=== PATIENT | male | born 1945 | race Caucasian/White ===

== ENCOUNTER → 2017-09-07 | Outpatient (CLI) | payer MEDICARE | END | disposition home or self-care (01) | LOC: RADNMMAIN 10:30 | PROVIDERS: ATTEND Nurse Practitioner Family | DX: Z53.9 Procedure and treatment not carried out, unspecified reason (principal) ==

== ENCOUNTER → 2017-09-27 | Outpatient (CLI) | payer MEDICARE ==
--- NOTE | 2017-09-27 12:35 | ECHOF ---
Referral Reason:Z01.818 pre surgical testing MEASUREMENTS -------- HEIGHT: 188.0 cm WEIGHT: 77.1 kg BP: 190/122 RVIDd: 4.0 cm (< 3.3) IVSd: 1.5 cm (0.6 - 1.1) LVIDd: 4.6 cm (3.9 - 5.3) LVPWd: 1.5 cm (0.6 - 1.1) IVSs: 2.2 cm LVIDs: 2.0 cm LVPWs: 2.0 cm LA Diam: 3.7 cm (2.7 - 3.8) LAESV Index (A-L): 46.21 ml/m Ao Diam: 3.8 cm (2.0 - 3.7) AV Cusp: 2.6 cm (1.5 - 2.6) EPSS: 0.3 cm MV E Aydin: 0.88 m/s MV DecT: 166 ms MV A Aydin: 1.10 m/s MV E/A Ratio: 0.81 RAP: 5.00 mmHg RVSP: 37.09 mmHg MV EF SLOPE: 77.33 mm/s (70 - 150) MV EXCURSION: 1.99 cm (> 18.000) FINDINGS -------- Sinus rhythm. This was a technically excellent study. The left ventricular size is normal. There is moderate concentric left ventricular hypertrophy. O verall left ventricular systolic function is normal with, an EF between 55 - 60 %. The right ventricle is moderately enlarged. LA is severely dilated >40 ml/m2 The right atrium is normal in size. Aortic valve is trileaflet and is mildly thickened. Trace to mild aortic regurgitation. The mitral valve leaflets are mildly thickened. Mild mitral regurgitation is present. Mild tricuspid regurgitation present. There is mild pulmonary hypertension. The right ventricular systolic pressure, as measured by Doppler, is 37.09mmHg. There is no pulmonic regurgitation present. The aortic root is dilated measuring 3.8cm. Normal inferior vena cava with normal inspiratory collapse consistent with estimated right atrial pre ssure of 5 mmHg. There is no pericardial effusion. CONCLUSIONS -------- 1. Sinus rhythm. 2. This was a technically excellent study. 3. The left ventricular size is normal. 4. There is moderate concentric left ventricular hypertrophy. 5. Overall left ventricular systolic function is normal with, an EF between 55 - 60 %. 6. The right ventricle is moderately enlarged. 7. LA is severely dilated >40 ml/m2 8. The right atrium is normal in size. 9. Aortic valve is trileaflet and is mildly thickened. 10. Trace to mild aortic regurgitation. 11. The mitral valve leaflets are mildly thickened. 12. Mild mitral regurgitation is present. 13. Mild tricuspid regurgitation present. 14. There is mild pulmonary hypertension. 15. The right ventricular systolic pressure, as measured by Doppler, is 37.09mmHg. 16. There is no pulmonic regurgitation present. 17. The aortic root is dilated measuring 3.8cm. 18. Normal inferior vena cava with normal inspiratory collapse consistent with estimated right atrial pressure of 5 mmHg. 19. There is no pericardial effusion. PAINTER DECORATOR: LELA Bridges
== END | disposition home or self-care (01) ==
LOC: RADECHMAIN 11:04
PROVIDERS: ATTEND Family Medicine
DX: Z01.818 Encounter for other preprocedural examination (principal); I27.20 Pulmonary hypertension, unspecified; I08.1 Rheumatic disorders of both mitral and tricuspid valves
CPT/HCPCS: 93306

== ENCOUNTER 2019-08-31 03:00 | Observation (INO) | payer MEDICARE ==
[2019-08-31 03:26] LABS: Basophils % (A) 1 %; Eosinophils # (A) 0.1 k/uL (0-0.7); Eosinophils % (A) 1 %; HCT 23.4 % (39.0-53.0); HGB 7.8 gm/dL (13.0-17.5); Lymphocytes # (A) 0.5 k/uL (1.0-4.8); Lymphocytes % (A) 9 %; MCH 32.3 pg (25.0-35.0); MCHC 33.4 g/dL (31.0-37.0); MCV 96.5 fL (80.0-100.0); Mean Platelet Volume 8.5; Monocytes # (A) 0.3 k/uL (0-1.0); Monocytes % (A) 5 %; Neutrophils # (A) 4.5 k/uL (1.3-7.7); Neutrophils % (A) 82 %; Platelet Count 171 k/uL (150-450); RBC 2.43 m/uL (4.30-5.90); RDW 14.2 % (11.5-15.5); WBC 5.5 k/uL (3.8-10.6)
[2019-08-31 03:35] LABS: African American GFR (CKD) >90 (>60 ml/min/1.73 sqM); Anion Gap 5 mmol/L; Blood Urea Nitrogen 40 mg/dL (9-20); Calcium 8.3 mg/dL (8.4-10.2); Carbon Dioxide 23 mmol/L (22-30); Chloride 105 mmol/L (98-107); Glucose 122 mg/dL (74-99); INR 1.1 (<1.2); Non-African American GFR(CKD) 78 (>60 ml/min/1.73 sqM); Partial Thromboplastin Time 25.3 sec (22.0-30.0); Potassium 4.2 mmol/L (3.5-5.1); Prothrombin Time 11.1 sec (9.0-12.0); Sodium 133 mmol/L (137-145)
[2019-08-31] MEDS ORDERED: MORPHINE SULFATE 4 MG/ML SYRINGE IV PRN (04:28)
[2019-08-31] MEDS ORDERED: NALOXONE 0.4 MG/ML 1 ML VIAL IV PRN (04:28)
[2019-08-31] MEDS ORDERED: ONDANSETRON 4 MG/2 ML VIAL IVP PRN (04:28)
[2019-08-31] MEDS ORDERED: HYDROcodone/APAP 5-325MG 1 EACH TAB PO PRN (04:31)
--- NOTE | 2019-08-31 04:36 | ED ---
ENT HPI - General Chief complaint: ENT Stated complaint: Nose Bleed Time Seen by Provider: 08/31/19 03:03 Source: patient, EMS Mode of arrival: EMS Limitations: no limitations - History of Present Illness Initial comments: This patient is a 73-year-old man presenting as a transfer from [facility]. He is sent here to have ENT consultation due to epistaxis. The patient states that he takes eliquis at baseline, his last dose was . Patient states that Monday morning approximately 4:30 AM he had the onset of bleeding from the right naris. The patient states that he was not able to stop this at home he therefore went to the emergency department and [facility]. His nose was packed with a Murocel packing, and he went home, but had recurrence of bleeding. The patient then went back to the hospital tonight, he had placement of bi lateral Rhino Rocket packings. He was given dose of TXa, and he reportedly still was having some bleeding and therefore transferred here. The patient states that things seemed to have slowed during the transfer and he is feeling better now. He is denying symptoms associated with the anemia is found at [place]. He denies chest pain, dyspnea, lightheadedness, palpitations or syncope. MD complaint: epistaxis Onset/Timin -: hour(s) Location: nose Severity: moderate Improves with: other (Packing) Worsens with: none Context-Epistaxis: other (L Aquinas) - Related Data Previous Rx's Medication Instructions Recorded Lisinopril [Zestril] 5 mg PO DAILY #60 tab 03/01/15 Hydrocodone/Acetaminophen [[place] 1 tab PO Q6HR PRN #20 tab 04/28/16 5-325] Allergies Allergy/AdvReac Type Severity Reaction Status Date / Time No Known Allergies Allergy Verified 04/28/16 10:38 Review of Systems ROS Statement: Those systems with pertinent positive or pertinent negative responses have been documented in the HPI. ROS Other: All systems not noted in ROS Statement are negative. Constitutional: Denies: fever, chills, weakness Eyes: Denies: vision change ENT: Reports: epistaxis Respiratory: Denies: cough, dyspnea Cardiovascular: Denies: chest pain, palpitations, syncope Gastrointestinal: Reports: vomiting. Denies: abdominal pain Skin: Denies: rash Neurological: Denies: headache, weakness, numbness, paresthesias Hematological/Lymphatic: Reports: as per HPI Past Medical History Past Medical History: CVA/TIA, Hypertension Additional Past Medical History / Comment(s): cva june 2019 effected peripheral vision on right side. History of Any Multi-Drug Resistant Organisms: None Reported Past Surgical History: Orthopedic Surgery Additional Past Surgical History / Comment(s): left shoulder Past Psychological History: No Psychological Hx Reported Smoking Status: Current every day smoker Past Alcohol Use History: Occasional Past Drug Use History: None Reported General Exam Limitations: no limitations General appearance: alert, in no apparent distress Head exam: Present: atraumatic, normocephalic Eye exam: Present: normal appearance, PERRL. Absent: scleral icterus, conjunctival injection ENT exam: Present: other (Patient has bilateral nasal packings. There is currently no anterior bleeding. The oropharynx does appear to have some dried blood but no active bleeding.) Neck exam: Present: full ROM Respiratory exam: Present: normal lung sounds bilaterally. Absent: respiratory distress, wheezes, rales, rhonchi, stridor Cardiovascular Exam: Present: regular rate, normal rhythm, systolic murmur. Absent: diastolic murmur, rubs, gallop GI/Abdominal exam: Present: soft. Absent: tenderness Neurological exam: Present: alert Skin exam: Present: warm, dry, intact, normal color. Absent: rash Course Vital Signs 08/31/19 08/31/19 03:01 04:04 Temperature 98 F Pulse Rate 80 60 Respiratory 18 18 Rate Blood Pressure 123/79 112/77 O2 Sat by Pulse 96 95 Oximetry Medical Decision Making - Lab Data Result diagrams: 08/31/19 03:14 08/31/19 03:14 Lab Results 08/31/19 08/31/19 08/31/19 Range/Units 03:14 03:14 03:14 WBC 5.5 (3.8-10.6) k/uL RBC 2.43 L (4.30-5.90) m/uL Hgb 7.8 L (13.0-17.5) gm/dL Hct 23.4 L (39.0-53.0) % MCV 96.5 (80.0-100.0) fL MCH 32.3 (25.0-35.0) pg MCHC 33.4 (31.0-37.0) g/dL RDW 14.2 (11.5-15.5) % Plt Count 171 (150-450) k/uL Neutrophils % 82 % Lymphocytes % 9 % Monocytes % 5 % Eosinophils % 1 % Basophils % 1 % Neutrophils # 4.5 (1.3-7.7) k/uL Lymphocytes # 0.5 L (1.0-4.8) k/uL Monocytes # 0.3 (0-1.0) k/uL Eosinophils # 0.1 (0-0.7) k/uL Basophils # 0.0 (0-0.2) k/uL PT 11.1 (9.0-12.0) sec INR 1.1 (<1.2) APTT 25.3 (22.0-30.0) sec Sodium (137-145) mmol/L Potassium (3.5-5.1) mmol/L Chloride (98-107) mmol/L Carbon Dioxide (22-30) mmol/L Anion Gap mmol/L BUN (9-20) mg/dL Creatinine (0.66-1.25) mg/dL Est GFR (CKD-EPI)AfAm (>60 ml/min/1.73 sqM) Est GFR (CKD-EPI)NonAf (>60 ml/min/1.73 sqM) Glucose (74-99) mg/dL Calcium (8.4-10.2) mg/dL Blood Type A Positive Blood Type Recheck No Previous Record Bld Type Recheck Status CABO Indicated Antibody Screen NEGATIVE Spec Expiration Date 09/03/2019 - 231308/31/19 Range/Units 03:14 WBC (3.8-10.6) k/uL RBC (4.30-5.90) m/uL Hgb (13.0-17.5) gm/dL Hct (39.0-53.0) % MCV (80.0-100.0) fL MCH (25.0-35.0) pg MCHC (31.0-37.0) g/dL RDW (11.5-15.5) % Plt Count (150-450) k/uL Neutrophils % % Lymphocytes % % Monocytes % % Eosinophils % % Basophils % % Neutrophils # (1.3-7.7) k/uL Lymphocytes # (1.0-4.8) k/uL Monocytes # (0-1.0) k/uL Eosinophils # (0-0.7) k/uL Basophils # (0-0.2) k/uL PT (9.0-12.0) sec INR (<1.2) APTT (22.0-30.0) sec Sodium 133 L (137-145) mmol/L Potassium 4.2 (3.5-5.1) mmol/L Chloride 105 (98-107) mmol/L Carbon Dioxide 23 (22-30) mmol/L Anion Gap 5 mmol/L BUN 40 H (9-20) mg/dL Creatinine 0.95 (0.66-1.25) mg/dL Est GFR (CKD-EPI)AfAm >90 (>60 ml/min/1.73 sqM) Est GFR (CKD-EPI)NonAf 78 (>60 ml/min/1.73 sqM) Glucose 122 H (74-99) mg/dL Calcium 8.3 L (8.4-10.2) mg/dL Blood Type Blood Type Recheck Bld Type Recheck Status Antibody Screen Spec Expiration Date Disposition Clinical Impression: Epistaxis, Anemia Disposition: ADMITTED IP TO THIS HOSP Condition: Fair Referrals: Magan Samayoa MD [Primary Care Provider] - 1-2 days
[2019-08-31] MEDS: SODIUM CHLORIDE 0.9% 1,000 ML IV SCH ×2 (04:44→22:03)
[2019-08-31] MEDS: LISINOPRIL 5 MG TAB PO SCH (12:36)
[2019-08-31] MEDS: METOPROLOL TARTRATE 12.5 MG TAB PO SCH ×2 (12:36→22:04)
--- NOTE | 2019-08-31 19:24 | P.HPIM ---
History of Present Illness H&P Date: 08/31/19 Chief Complaint: Epistaxis History of presenting complaint: This is a pleasant 73-year-old patient of Dr. Fahad Samayoa. Chronic stable medical conditions include hypertension, COPD, some loss of peripheral vision on the right side from prior stroke. Patient is on eliquis. Patient's simvastatin having significant nose bleed-that started on Monday morning. From the right nose. He went to the ER after. Hospital. A packing was then he was sent home. Necrosis of bleeding occurred. Subsequently in the ER bilateral Rhino rocket packs were done. Given a dose of 20 x-ray still of some bleeding was transferred here. No further bleeding since arriving in the hospital. Patient was sent down here for ENT consultation. Patient does feel a bit tired rundown. No further bleeding. Review of systems: GEN.: Tired and dizzy EYES: None HEENT: As above NECK: None RESPIRATORY: None CARDIOVASCULAR: None GASTROINTESTINAL: None GENITOURINARY: None MUSCULOSKELETAL: Joint pains LYMPHATICS: None HEMATOLOGICAL: None PSYCHIATRY: None NEUROLOGICAL: None Past medical history to include: Hypertension, COPD, loss of vision peripheral in the right side Social history: Smokes half a pack a day for many years. Alcohol occasionally. Family history: Reviewed, noncontributory to presentation Physical examination: VITAL SIGNS: 98, 80, 18, 120 279, 96% on room air GENERAL: BMI 20.4, sitting up, awake. EYES: Pupils equal. Conjunctiva normal. HEENT: Nasal packing in both the nostrils with strings. NECK: JVD not raised; masses not palpable. HEART: First and second heart sounds are normal; no edema. LUNGS:[ Respiratory rate normal; decreased breath sounds. ABDOMEN: Soft, nontender, liver spleen not palpable, no masses palpable. PSYCH: Alert and oriented x3; mood and affect normal. NEUROLOGICAL: Cranial nerves grossly intact; no facial asymmetry, power and sensation grossly intact. LYMPHATICS: No lymph nodes palpable in the axilla and neck INVESTIGATIONS, reviewed in the clinical context: White count 5.5 hemoglobin 7.8 potassium 4.2 creatinine 0.95 Assessment: -Acute severe epistaxis recurrent, patient has a distal packing. -Acute severe blood loss anemia from epistaxis, symptomatic -COPD in a current smoker -Chronic nicotine dependence patient cigarette smoker -Essential hypertension - Plan: ENT Dr. Meadows was consulted. Cut the packing in place. Discussed with the patient. Eliquis will be held off to the packing comes out. In about 4-5 days. 24 hours following that patient may resume eliquis. Patient is completing the meantime with any kind of anticoagulation. Patient advised not to blow his nose or pick on his nose. Repeat hemoglobin in the morning. Past Medical History Past Medical History: CVA/TIA, Hypertension Additional Past Medical History / Comment(s): cva june 2019 effected peripheral vision on right side. History of Any Multi-Drug Resistant Organisms: None Reported Past Surgical History: Orthopedic Surgery Additional Past Surgical History / Comment(s): left shoulder Past Anesthesia/Blood Transfusion Reactions: No Reported Reaction Past Psychological History: No Psychological Hx Reported Smoking Status: Current every day smoker Past Alcohol Use History: Occasional Past Drug Use History: None Reported - Past Family History Father Family Medical History: No Reported History Medications and Allergies Home Medications Medication Instructions Recorded Confirmed Type Albuterol Inhaler [Ventolin Hfa 1 - 2 puff INHALATION RT-Q6H PRN 08/31/19 08/31/19 History Inhaler] Apixaban [Eliquis] 5 mg PO BID 08/31/19 08/31/19 History Aspirin EC [Ecotrin Low Dose] 81 mg PO DAILY 08/31/19 08/31/19 History Atorvastatin [Lipitor] 40 mg PO HS 08/31/19 08/31/19 History Metoprolol Tartrate 12.5 mg PO DAILY 08/31/19 08/31/19 History Multivitamins, Thera [Multivitamin 1 tab PO DAILY 08/31/19 08/31/19 History (formulary)] amLODIPine [Norvasc] 5 mg PO DAILY 08/31/19 08/31/19 History Allergies Allergy/AdvReac Type Severity Reaction Status Date / Time No Known Allergies Allergy Verified 08/31/19 10:31 Physical Exam Vitals: Vital Signs Temp Pulse Pulse Resp BP BP Pulse Ox 08/31/19 05:30 97.9 F 82 16 110/67 95 08/31/19 04:47 73 18 117/80 97 08/31/19 04:04 60 18 112/77 95 08/31/19 03:01 98 F 80 18 123/79 96 Intake and Output 08/30/19 08/31/19 08/31/19 22:59 06:59 14:59 Other: Weight 72.121 kg Results CBC & Chem 7: 08/31/19 03:14 08/31/19 03:14 Labs: Abnormal Lab Results - Last 24 Hours (Table) 08/31/19 08/31/19 Range/Units 03:14 03:14 RBC 2.43 L (4.30-5.90) m/uL Hgb 7.8 L (13.0-17.5) gm/dL Hct 23.4 L (39.0-53.0) % Lymphocytes # 0.5 L (1.0-4.8) k/uL Sodium 133 L (137-145) mmol/L BUN 40 H (9-20) mg/dL Glucose 122 H (74-99) mg/dL Calcium 8.3 L (8.4-10.2) mg/dL Thrombosis Risk Factor Assmnt - Choose All That Apply Any of the Below Risk Factors Present?: No Other Risk Factors: Yes Each Risk Factor Represents 3 Points: Age 75 years or older Other congenital or acquired thrombophilia - If yes, enter type in comment: No Thrombosis Risk Factor Assessment Total Risk Factor Score: 3 Thrombosis Risk Factor Assessment Level: Moderate Risk
[2019-08-31] MEDS: ACETAMINOPHEN TAB 325 MG TAB PO PRN (20:05)
[2019-08-31] MEDS ORDERED: ATORVASTATIN 40 MG TAB PO SCH (21:00)
--- NOTE | 2019-09-01 03:20 | CONS ---
CONSULTATION DATE OF CONSULTATION: 08/31/2019 REASON FOR THE CONSULTATION: Bilateral posterior epistaxis. HISTORY OF PRESENT ILLNESS: This patient is a very pleasant, 73-year-old male who was admitted via the [facility] Emergency Room to [facility] for definitive treatment of a bilateral posterior epistaxis. The patient states that on 08/30/2019 in the early a.m., he developed bleeding from the right, and subsequently the left, nostril. He tried applying pressure and putting tissue in his nose. However, the bleeding did not stop and, therefore, he proceeded to [facility]. He was seen by the emergency room physician. An anterior-posterior balloon packing was inserted and the patient was subsequently discharged. The patient states that he went home and later on that evening he started bleeding once again. He returned to the [facility] Center. The emergency room physician removed the packing because it was bleeding around the packing/nasal balloons. He reinserted a new nasal balloon and apparently the bleeding had stopped. To the best of my knowledge, the hospital has one and possibly three ENT specialists on staff. One of the ENT specialists lives in [facility] and the other two that I believe are on staff live in [place], [place]. However, for some reason none of the ENT physicians on staff at the [facility] were available for automation developer for the [facility] Emergency Room. Therefore, the emergency room sent a call to [facility] ER for permission to transfer the patient to receive ENT treatment. The [facility] accepted the transfer and the patient was seen by the emergency room physician and at that time it was noted that the patient was bleeding out of the opposite nostril and, therefore, that side also had a nasal balloon packing inserted. Therefore, the patient had both naris packed with Rhino Rocket nasal balloons. He was subsequently admitted to the hospital for treatment because his hemoglobin was approximately 8 and there was concern about his getting dizzy. No transfusion was performed, however. The patient states that he has had minor nosebleeds in the past. He apparently is on Eliquis and baby aspirin for blood thinners. He has history of having a previous stroke and that is the reason for it. PAST MEDICAL HISTORY: Past medical history reveals he has NO ALLERGIES TO MEDICATIONS. He smokes anywhere from one-half to one pack plus of cigarettes per day. He has been advised to stop for obvious health reasons including the fact that he has had a previous stroke. Although the hospital in [place] did not stop the patient's blood thinners when they sent him home, fortunately, the [facility] did stop the patient's Eliquis and the baby aspirin upon admitting him to the hospital. THE PATIENT HAS NO ALLERGIES TO MEDICATIONS. His current home medications include Norvasc, one baby aspirin daily, metoprolol, Lipitor, Eliquis, and Ventolin. REVIEW OF SYSTEMS: CARDIOVASCULAR: Positive for hypertension and ASHD. RESPIRATORY SYSTEM: Positive for COPD/emphysema. GASTROINTESTINAL SYSTEM: Negative. METABOLIC/ENDOCRINE SYSTEM: Positive for hypercholesterolemia. The remainder of the review of systems is essentially unremarkable. PHYSICAL EXAMINATION: This patient is a pleasant, 73-year-old male who is alert, cooperative, and well oriented to time and place. HEENT EXAMINATION: The patient is normocephalic. Tympanic membranes are normal. Middle ear spaces are free of any fluid or infections. Pupils equal, round, and reactive to light and accommodation. Extraocular movements are within normal limits. Conjunctivae are clear. Sclerae are clear. Intranasal examination is not possible because the patient has bilateral nasal balloons present; however, there is no active bleeding around the balloons noted at this time. Examination of the oropharynx with attention to the posterior pharynx does not reveal any evidence of any clots or any bleeding down the posterior pharyngeal wall. Palpation of the neck: Cranial nerves II through XII and the remainder of the head and neck exam are within normal limits. CHEST/CARDIOVASCULAR: Both lung benson are clear, although lung sounds are somewhat distant, especially at the bases bilaterally. The patient is in regular sinus rhythm. S1 and S2 are present without evidence of any murmurs, S3, or S4. ABDOMEN: There is no evidence of any masses, megaly, or tenderness. The abdomen is soft. The remainder of physical exam is unremarkable. IMPRESSION: 1. Bilateral anterior posterior epistaxis. 2. Hypertension. 3. Hypercholesterolemia. 4. Atherosclerotic heart disease. 5. Chronic obstructive pulmonary disease/emphysema. 6. Osteoarthritis. PLAN: The patient has not had any dizzy spells and appears to be stabilized at this time. He has not had any further bleeding since his admission. I discussed with the patient the fact that, because he was stable, it would be okay for him to go home today. However, I admonished the patient that he absolutely must not use any aspirin or Eliquis until he is seen by me in my office in approximately 5 days. His will call on Monday to make an appointment to be seen on Monday of next week. At that time, I will remove the nasal balloons. I advised the patient that the balloons have to stay in place for that length of time in order to allow the injured blood vessels to thrombose off and not bleed any further. I also advised the patient that it is not unusual to have minor bleeding intermittently while the balloons are in. This usually is related to the fact that there may be some residual Eliquis and aspirin in his sytem and also the fact that in these patients whenever the blood pressure goes up there tends to be bleeding. Therefore, I have advised him that he needs to be essentially at rest at home but not strictly bed rest. He should not engage in any type of activity such as yard work, furniture moving, or any type of activity that will cause him to strain. The more rest he gets, the less chances of him having any further bleeding. For his osteoarthritis, he may take Tylenol but he is to avoid ibuprofen and also is not to take any aspirin or Eliquis while at home. Furthermore, I have advised the patient that I will be placing him on Keflex 500 mg p.o. b.i.d. for 10 days to prevent any type of sinus infection from any blood that may have accumulated in the maxillary sinuses during his bleeding episodes. He will also be given approximately 20 Tylenol No. 3 tablets to be taken q.4 hours p.r.n. for pain. He may also take Extra Strength Tylenol for pain but not ibuprofen. I recommended to the patient that he absolutely, positively not do any smoking at least until he sees me. I advised him that he should contact his primary care physician, Dr. Samayoa, and advised him that I have requested that he be off the Eliquis and the aspirin until further notice. I spoke with the patient's on the patient's cellphone and relayed all of the above information to her as well. She states that she will accompany him to the office visit. I advised the patient that at the time of the office visit both of the nasal balloons will be removed and he will be started on a regimen to prevent any further bleeding until the area has healed. All of the patient's questions and all of the patient's 's questions were answered while I was in the room. I spent approximately 35 to 40 minutes with this patient going over instructions and I will leave two prescriptions, one prescription for Keflex 500 mg b.i.d., #20; and Tylenol No. 3 tablets, one p.o. q.4 hours p.r.n. for pain, #20, at the nursing station. In addition to this, I gave the patient two of my business cards with my address and phone number present so that he may call and schedule a visit on Monday. I want to take this opportunity to thank you for allowing me to assist in the care of your patient. If I can be of any further assistance, please feel free to call my office. I also advised the patient that because there is at least one ENT physician located in the town of [place] and because I believe that there are two other ENT physicians that come from [place] to provide care at [facility] that it is more than acceptable for him to see either one of those physicians if he would like to see one of those physicians. However, he emphasized that he would prefer to follow with me at my office and, therefore, I look forward to seeing him next Monday. SUZANNE / AIDE: [phone] /
[2019-09-01 06:41] LABS: Basophils % (A) 0 %; Eosinophils % (A) 0 %; HCT 20.7 % (39.0-53.0); Lymphocytes # (A) 0.4 k/uL (1.0-4.8); Lymphocytes % (A) 6 %; MCH 32.8 pg (25.0-35.0); MCHC 33.4 g/dL (31.0-37.0); MCV 98.3 fL (80.0-100.0); Monocytes # (A) 0.6 k/uL (0-1.0); Monocytes % (A) 8 %; Neutrophils # (A) 5.8 k/uL (1.3-7.7); Neutrophils % (A) 83 %; Platelet Count 142 k/uL (150-450); RDW 14.2 % (11.5-15.5)
[2019-09-01 06:54] LABS: HGB 6.9 gm/dL (13.0-17.5)
[2019-09-01] MEDS: LISINOPRIL 5 MG TAB PO SCH (08:23)
[2019-09-01] MEDS: SODIUM CHLORIDE 0.9% 1,000 ML IV SCH (08:23)
[2019-09-01] MEDS: METOPROLOL TARTRATE 12.5 MG TAB PO SCH (08:23)
[2019-09-01] MEDS: ACETAMINOPHEN TAB 325 MG TAB PO PRN (08:28)
[2019-09-01 14:36] VITALS: BP 156/75; PULSE 76; RESP 14; TEMP 97.9
[2019-09-01 17:36] LABS: Basophils % (A) 0 %; Eosinophils % (A) 1 %; HCT 22.7 % (39.0-53.0); HGB 7.6 gm/dL (13.0-17.5); Lymphocytes # (A) 0.6 k/uL (1.0-4.8); Lymphocytes % (A) 7 %; MCH 32.1 pg (25.0-35.0); MCHC 33.6 g/dL (31.0-37.0); MCV 95.4 fL (80.0-100.0); Mean Platelet Volume 9.5; Monocytes # (A) 0.6 k/uL (0-1.0); Monocytes % (A) 7 %; Neutrophils # (A) 6.5 k/uL (1.3-7.7); Neutrophils % (A) 83 %; Platelet Count 153 k/uL (150-450); RBC 2.37 m/uL (4.30-5.90); RDW 14.6 % (11.5-15.5); WBC 7.9 k/uL (3.8-10.6)
--- NOTE | 2019-09-01 20:37 | P.DS ---
Providers Date of admission: 08/31/19 04:41 Expected date of discharge: 09/01/19 Attending physician: Dominic Cruz Consults: 08/31/19 04:29 Consult Physician Routine Consulting Provider: Jos Meadows Consult Reason/Comments: epistaxis Do you want consulting provider notified?: Yes Primary care physician: Magan Samayoa [facility] Course: Chief Complaint: Epistaxis History of presenting complaint: This is a pleasant 73-year-old patient of Dr. Fahad Samayoa. Chronic stable medical conditions include hypertension, COPD, some loss of peripheral vision on the right side from prior stroke. Patient is on eliquis. Patient's simvastatin having significant nose bleed-that started on Monday morning. From the right nose. He went to the ER after. Hospital. A packing was then he was sent home. Necrosis of bleeding occurred. Subsequently in the ER bilateral Rhino rocket packs were done. Given a dose of 20 x-ray still of some bleeding was transferred here. No further bleeding since arriving in the hospital. Patient was sent down here for ENT consultation. Patient does feel a bit tired rundown. No further bleeding. Patient is seen by Dr. Jso Meadows from ENT. Today-hemoglobin dropped down to 6.9. Unit of blood was given. Patient advised to start his aspirin 24 hours after the nasal packing was removed next Monday. He'll then discuss with his family doctor about restarting eliquis. Patient rather reluctant to go back on the same. Care discussed in detail. Discussion and discharge planning more than 35 minutes Consultation: Dr. Jos Meadows Physical examination: VITAL SIGNS: 97.9, 76, 14, 127/79, 97% GENERAL: BMI 20.4, sitting up, awake. EYES: Pupils equal. Conjunctiva normal. HEENT: Nasal packing in both the nostrils with strings. NECK: JVD not raised; masses not palpable. HEART: First and second heart sounds are normal; no edema. LUNGS:[ Respiratory rate normal; decreased breath sounds. ABDOMEN: Soft, nontender, liver spleen not palpable, no masses palpable. PSYCH: Alert and oriented x3; mood and affect normal. INVESTIGATIONS, reviewed in the clinical context: Hemoglobin 6.9 this morning. After one unit of transfusion 7.6 Assessment: -Acute severe epistaxis recurrent, patient has a distal packing. -Acute severe blood loss anemia from epistaxis, symptomatic -COPD in a current smoker -Chronic nicotine dependence patient cigarette smoker -Essential hypertension - Disposition: Home Patient Condition at Discharge: Stable Plan - Discharge Summary Discharge Rx Participant: No New Discharge Prescriptions: New Lisinopril [Zestril] 5 mg PO DAILY #30 tab Cephalexin [Keflex] 500 mg PO Q6HR 3 Days #20 cap Acetaminophen with Codeine [Tylenol w/codeine #3] 1 tab PO Q4H PRN 3 Days #20 tab PRN Reason: Pain Continue Atorvastatin [Lipitor] 40 mg PO HS Multivitamins, Thera [Multivitamin (formulary)] 1 tab PO DAILY Albuterol Inhaler [Ventolin Hfa Inhaler] 1 - 2 puff INHALATION RT-Q6H PRN PRN Reason: Shortness Of Breath Changed Metoprolol Tartrate 12.5 mg PO BID #60 tab Discontinued amLODIPine [Norvasc] 5 mg PO DAILY No Action Apixaban [Eliquis] 5 mg PO BID Aspirin EC [Ecotrin Low Dose] 81 mg PO DAILY Discharge Medication List Albuterol Inhaler [Ventolin Hfa Inhaler] 1 - 2 puff INHALATION RT-Q6H PRN 08/31/19 [History] Apixaban [Eliquis] 5 mg PO BID 08/31/19 [History] Aspirin EC [Ecotrin Low Dose] 81 mg PO DAILY 08/31/19 [History] Atorvastatin [Lipitor] 40 mg PO HS 08/31/19 [History] Multivitamins, Thera [Multivitamin (formulary)] 1 tab PO DAILY 08/31/19 [History] Acetaminophen with Codeine [Tylenol w/codeine #3] 1 tab PO Q4H PRN 3 Days #20 tab 09/01/19 [Rx] Cephalexin [Keflex] 500 mg PO Q6HR 3 Days #20 cap 09/01/19 [Rx] Lisinopril [Zestril] 5 mg PO DAILY #30 tab 09/01/19 [Rx] Metoprolol Tartrate 12.5 mg PO BID #60 tab 09/01/19 [Rx] Follow up Appointment(s)/Referral(s): Magan Samayoa MD [Primary Care Provider] - 1-2 days Jos Meadows MD [STAFF PHYSICIAN] - 09/04/19 Patient Instructions/Handouts: Nosebleed (GEN) Activity/Diet/Wound Care/Special Instructions: NO ELIQUIS, NO ASPIRIN, NO IBUPROFEN UNTIL SEEN BY DR. MEADOWS TO HAVE PACKING REMOVED FROM [facility]ES. MAY TAKE EXTRA STRENGTH TYLENOL OR PRESCRIPTION PAIN MEDICATIONS. REFRAIN FROM SMOKING UNTIL SEEN BY DR. MEADOWS. start aspirin 24 hrs after nasal packing removed and eliquis 3 days after that if no bleeding Discharge Disposition: HOME WITH HOME HEALTH SERVICES
== END 2019-09-01 19:20 | disposition home health service (06) ==
LOC: EC 03:00 → 6NMEDSUR 04:41
PROVIDERS: ADMIT Hospitalist; ATTEND Hospitalist
DX: R04.0 Epistaxis (principal); D62 Acute posthemorrhagic anemia; E78.00 Pure hypercholesterolemia, unspecified; F17.210 Nicotine dependence, cigarettes, uncomplicated; I10 Essential (primary) hypertension; I25.10 Atherosclerotic heart disease of native coronary artery without angina pectoris; J43.9 Emphysema, unspecified; M19.90 Unspecified osteoarthritis, unspecified site; Z79.01 Long term (current) use of anticoagulants; Z79.82 Long term (current) use of aspirin; Z79.899 Other long term (current) drug therapy; I69.398 Other sequelae of cerebral infarction; H53.8 Other visual disturbances
CPT/HCPCS: 96361; 96360; 99284; 36415; 86900; 86901; 80048; 85025 ×2; 85610; 85730; 86850; 86920; G0378 ×2; P9016

== ENCOUNTER 2019-09-11 14:17 | Emergency (ER) | payer MEDICARE ==
[2019-09-11 15:21] LABS: Basophils % (A) 1 %; Eosinophils # (A) 0.1 k/uL (0-0.7); Eosinophils % (A) 3 %; HCT 22.2 % (39.0-53.0); HGB 7.1 gm/dL (13.0-17.5); Lymphocytes # (A) 0.5 k/uL (1.0-4.8); Lymphocytes % (A) 13 %; MCHC 31.9 g/dL (31.0-37.0); MCV 97.2 fL (80.0-100.0); Mean Platelet Volume 9.9; Monocytes # (A) 0.4 k/uL (0-1.0); Monocytes % (A) 10 %; Neutrophils # (A) 2.7 k/uL (1.3-7.7); Neutrophils % (A) 71 %; Platelet Count 241 k/uL (150-450); RBC 2.29 m/uL (4.30-5.90); RDW 14.3 % (11.5-15.5); WBC 3.8 k/uL (3.8-10.6)
[2019-09-11 15:31] LABS: ALT 87 U/L (4-49); AST 64 U/L (17-59); African American GFR (CKD) >90 (>60 ml/min/1.73 sqM); Albumin 2.7 g/dL (3.5-5.0); Alkaline Phosphatase 143 U/L (38-126); Anion Gap 7 mmol/L; Blood Urea Nitrogen 19 mg/dL (9-20); Carbon Dioxide 25 mmol/L (22-30); Chloride 99 mmol/L (98-107); Glucose 101 mg/dL (74-99); Non-African American GFR(CKD) 85 (>60 ml/min/1.73 sqM); Potassium 3.6 mmol/L (3.5-5.1); Sodium 131 mmol/L (137-145); Total Bilirubin 0.2 mg/dL (0.2-1.3)
--- NOTE | 2019-09-11 19:30 | ED ---
General Adult HPI - General Source: patient, family, RN notes reviewed, old records reviewed Mode of arrival: ambulatory Limitations: no limitations <Omero Amin - Last Filed: 09/11/19 19:29> <CalebyvesBlayne kidd - Last Filed: 09/11/19 20:47> - General Chief complaint: Recheck/Abnormal Lab/Rx Stated complaint: blood transfusion Time Seen by Provider: 09/11/19 14:40 - History of Present Illness Initial comments: 73-year-old male patient past history suffered for CVA, was previously anticoagulated on eliquis presents ED for anemia. Patient reports the 10 days ago he had a posterior epistaxis for which she lost a lot of blood was sent to the emergency department found to have a low hemoglobin and was transfused. Patient reports that he has since been discontinued from his eliquis. Reports he had blood drawn by his primary care provider today and found to have a hemoglobin in the high 60s. Patient reports that he has been feeling somewhat generally tired however denies any chest pain shortness of breath. Denies any bright red blood or melanotic stools. Denies any bleeding from his gums. Jacques es any other complaints. Systemic: Pt denies fatigue, fever/chills, rash. Pt denies weakness, night sweats, weight loss. Neuro: Pt denies headache, visual disturbances, syncope or pre-syncope. HEENT: Pt denies ocular discharge or irritation, otalgia, rhinorrhea, pharyngitis or notable lymphadenopathy. Cardiopulmonary: Pt denies chest pain, SOB, heart palpitations, dyspnea on exertion. Abdominal/GI: Pt denies abdominal pain, n/v/d. : Pt denies dysuria, burning w/ urination, frequency/urgency. Denies new onset urinary or bowel incontinence. MSK: Pt denies myalgia, loss of strength or function in extremities. Neuro: Pt denies new onset weakness, paresthesias. (Omero Amin) - Related Data Home Medications Medication Instructions Recorded Confirmed Albuterol Inhaler (Bulk) [Ventolin 1 - 2 puff INHALATION RT-Q4H PRN 08/31/19 09/11/19 Hfa Inhaler (Bulk)] Apixaban [Eliquis] 5 mg PO BID 08/31/19 09/11/19 Aspirin EC [Ecotrin Low Dose] 81 mg PO DAILY 08/31/19 09/11/19 Atorvastatin [Lipitor] 40 mg PO HS 08/31/19 09/11/19 Multivitamins, Thera [Multivitamin 1 tab PO DAILY 08/31/19 09/11/19 (formulary)] Mupirocin 2% Oint [Bactroban 2% 1 applic NASAL TID 09/11/19 09/11/19 Oint] Previous Rx's Medication Instructions Recorded Lisinopril [Zestril] 5 mg PO DAILY #30 tab 09/01/19 Metoprolol Tartrate 12.5 mg PO BID #60 tab 09/01/19 Allergies Allergy/AdvReac Type Severity Reaction Status Date / Time No Known Allergies Allergy Verified 09/11/19 19:36 Review of Systems ROS Other: All systems not noted in ROS Statement are negative. <Omero Amin - Last Filed: 09/11/19 19:29> ROS Other: All systems not noted in ROS Statement are negative. <Blayne Stevens - Last Filed: 09/11/19 20:47> ROS Statement: Those systems with pertinent positive or pertinent negative responses have been documented in the HPI. Past Medical History Past Medical History: CVA/TIA, Hypertension Additional Past Medical History / Comment(s): cva june 2019 effected peripheral vision on right side. History of Any Multi-Drug Resistant Organisms: None Reported Past Surgical History: Orthopedic Surgery Additional Past Surgical History / Comment(s): left shoulder Past Anesthesia/Blood Transfusion Reactions: No Reported Reaction Past Psychological History: No Psychological Hx Reported Smoking Status: Former smoker Past Alcohol Use History: None Reported, Occasional Past Drug Use History: None Reported - Past Family History Father Family Medical History: No Reported History <Omero Amin - Last Filed: 09/11/19 19:29> General Exam Limitations: no limitations <Omero Amin - Last Filed: 09/11/19 19:29> - General Exam Comments Initial Comments: Constitutional: NAD, AOX3, Pt has pleasant affect. HEENT: NC/AT, trachea midline, neck supple, no lymphadenopathy. Posterior pharynx non erythematous, without exudates. External ears appear normal, without discharge. Mucous membranes moist. Eyes PERRLA, EOM intact. There is no scleral icterus. No pallor noted. Cardiopulmonary: RRR, no murmurs, rubs or gallops, no JVD noted. Lungs CTAB in anterior and posterior benson. No peripheral edema. Abdominal exam: Abdomen soft and non-distended. Abdomen non-tender to palpation in all 4 quadrants. Bowel sounds active in LLQ. No hepatosplenomegaly. No ecchymosis Neuro: CN II-XII grossly intact. No nuchal rigidity. No raccon eyes, no grace sign, no hemotympanum. No cervical spinal tenderness. MSK: No posterior calf tenderness bilaterally, homans sign negative bilaterally. Posterior tibialis and radial pulse +2 bilaterally. Sensation intact in upper and lower extremities. Full active ROM in upper and lower extremities, 5/5 stregnth. (Omero Amin) Course Vital Signs 09/11/19 09/11/19 09/11/19 14:28 19:02 19:23 Temperature 98 F 97.8 F 97.8 F Pulse Rate 61 72 97 Respiratory 18 18 18 Rate Blood Pressure 100/66 127/77 125/77 O2 Sat by Pulse 97 96 99 Oximetry 09/11/19 09/11/19 09/11/19 19:32 19:42 20:12 Temperature 98.0 F 98.8 F 98.3 F Pulse Rate 61 68 60 Respiratory 18 17 18 Rate Blood Pressure 127/90 130/76 130/97 O2 Sat by Pulse 99 99 98 Oximetry Medical Decision Making - Lab Data Result diagrams: 09/11/19 15:05 09/11/19 15:05 <Omero Amin - Last Filed: 09/11/19 19:29> - Lab Data Result diagrams: 09/11/19 15:05 09/11/19 15:05 <Blayne Stevens - Last Filed: 09/11/19 20:47> - Medical Decision Making 73-year-old male patient presents to ED for chief complaint of anemia. Patient also and are stable, afebrile. Physical exam did not acute pathology. Patient declined a Hemoccult blood. Hemoglobin of 7.1. Mild transaminitis is noted. Patient does not have any abdominal pain or tenderness. Will advise have that rechecked by primary care provider. Patient was transfused 1 unit, will discharge will follow-up with primary care grandmother term precautions. Case discussed in depth with Dr. Stevens. (Omero Amin) Patient reevaluated resting comfortably, hemoglobin today is 7.1 with no source of active bleeding. His outpatient hemoglobin was in the 60s. He was transfused 1 unit in the emergency department. He has good color, stable vitals, very eager for discharge. He will be discharged, given hematology follow-up and close return parameters. (Blayne Stevens) - Lab Data Lab Results 09/11/19 09/11/19 09/11/19 Range/Units 15:05 15:05 17:19 WBC 3.8 (3.8-10.6) k/uL RBC 2.29 L (4.30-5.90) m/uL Hgb 7.1 L (13.0-17.5) gm/dL Hct 22.2 L (39.0-53.0) % MCV 97.2 (80.0-100.0) fL MCH 31.0 (25.0-35.0) pg MCHC 31.9 (31.0-37.0) g/dL RDW 14.3 (11.5-15.5) % Plt Count 241 (150-450) k/uL Neutrophils % 71 % Lymphocytes % 13 % Monocytes % 10 % Eosinophils % 3 % Basophils % 1 % Neutrophils # 2.7 (1.3-7.7) k/uL Lymphocytes # 0.5 L (1.0-4.8) k/uL Monocytes # 0.4 (0-1.0) k/uL Eosinophils # 0.1 (0-0.7) k/uL Basophils # 0.0 (0-0.2) k/uL Sodium 131 L (137-145) mmol/L Potassium 3.6 (3.5-5.1) mmol/L Chloride 99 (98-107) mmol/L Carbon Dioxide 25 (22-30) mmol/L Anion Gap 7 mmol/L BUN 19 (9-20) mg/dL Creatinine 0.86 (0.66-1.25) mg/dL Est GFR (CKD-EPI)AfAm >90 (>60 ml/min/1.73 sqM) Est GFR (CKD-EPI)NonAf 85 (>60 ml/min/1.73 sqM) Glucose 101 H (74-99) mg/dL Calcium 8.0 L (8.4-10.2) mg/dL Total Bilirubin 0.2 (0.2-1.3) mg/dL AST 64 H (17-59) U/L ALT 87 H (4-49) U/L Alkaline Phosphatase 143 H (38-126) U/L Total Protein 6.0 L (6.3-8.2) g/dL Albumin 2.7 L (3.5-5.0) g/dL Blood Type A Positive Blood Type Recheck A Pos Bld Type Recheck Status No Antibody Screen NEGATIVE Crossmatch See Detail Spec Expiration Date 09/14/20193 Disposition Is patient prescribed a controlled substance at d/c from ED?: No <Omero Amin - Last Filed: 09/11/19 19:29> Time of Disposition: 20:47 <Blayne Stevens - Last Filed: 09/11/19 20:47> Clinical Impression: Anemia Disposition: HOME SELF-CARE Condition: Stable Instructions (If sedation given, give patient instructions): Anemia (ED) Additional Instructions: Follow-up with primary care provider tomorrow. Return to ER if condition worsens in any way. Have liver enzymes rechecked by primary care provider. Referrals: Magan Samayoa MD [Primary Care Provider] - 1-2 days Conner Rosenbaum MD [STAFF PHYSICIAN] - 1-2 days
[2019-09-11 20:20] VITALS: BP 130/97; PULSE 60; RESP 18; TEMP 98.3
== END 2019-09-11 21:17 | disposition home or self-care (01) ==
LOC: EC 14:17
DX: D64.9 Anemia, unspecified (principal); R74.0 Nonspecific elevation of levels of transaminase and lactic acid dehydrogenase [LDH]; I10 Essential (primary) hypertension; Z79.01 Long term (current) use of anticoagulants; Z79.82 Long term (current) use of aspirin; Z79.899 Other long term (current) drug therapy; Z87.891 Personal history of nicotine dependence; Z86.73 Personal history of transient ischemic attack (TIA), and cerebral infarction without residual deficits
CPT/HCPCS: 36415; 86900; 86901; 80053; 85025; 86850; 86920; 99284; 36430; P9016

== ENCOUNTER 2021-08-28 03:49 | Emergency (ER) | payer MEDICARE ==
[2021-08-28 04:01] VITALS: RESP 18; TEMP 97.8
--- NOTE | 2021-08-28 04:02 | ED ---
ENT HPI - General Chief complaint: ENT Stated complaint: Nosebleed Time Seen by Provider: 08/28/21 03:57 Source: EMS, RN notes reviewed, old records reviewed Mode of arrival: EMS Limitations: no limitations - History of Present Illness Initial comments: This is a 75-year-old male DF for evaluation. Patient Dese for evaluation of nosebleed. Patient is on blood thinners, [place]. No traumas. No other significant complaints. Patient has had prior episodes of nosebleeds. Patient comes in for EMS who did placed a clamp on patient's nose. Does appear to be currently helping. Otherwise no complaints MD complaint: epistaxis -: hour(s) Location: nose Severity: severe Severity scale (1-10): 8 Consistency: constant Improves with: none Worsens with: none Context-Epistaxis: warfarin use, history of similar Associated Symptoms: other - Related Data Home Medications Medication Instructions Recorded Confirmed Albuterol Inhaler (Mhu) [Ventolin 1 - 2 puff INHALATION RT-Q4H PRN 08/31/19 09/11/19 Hfa Inhaler (Mhu)] Apixaban [Eliquis] 5 mg PO BID 08/31/19 09/11/19 Aspirin EC [Ecotrin Low Dose] 81 mg PO DAILY 08/31/19 09/11/19 Atorvastatin [Lipitor] 40 mg PO HS 08/31/19 09/11/19 Multivitamins, Thera [Multivitamin 1 tab PO DAILY 08/31/19 09/11/19 (formulary)] Mupirocin 2% Oint [Bactroban 2% 1 applic NASAL TID 09/11/19 09/11/19 Oint] Previous Rx's Medication Instructions Recorded Metoprolol Tartrate 12.5 mg PO BID #60 tab 09/01/19 lisinopriL [Zestril] 5 mg PO DAILY #30 tab 09/01/19 Allergies Allergy/AdvReac Type Severity Reaction Status Date / Time No Known Allergies Allergy Verified 08/28/21 04:00 Review of Systems ROS Statement: Those systems with pertinent positive or pertinent negative responses have been documented in the HPI. ROS Other: All systems not noted in ROS Statement are negative. Past Medical History Past Medical History: CVA/TIA, Hypertension Additional Past Medical History / Comment(s): cva june 2019 effected peripheral vision on right side. History of Any Multi-Drug Resistant Organisms: None Reported Past Surgical History: Orthopedic Surgery Additional Past Surgical History / Comment(s): left shoulder Past Anesthesia/Blood Transfusion Reactions: No Reported Reaction Past Psychological History: No Psychological Hx Reported Smoking Status: Current every day smoker Past Alcohol Use History: None Reported, Occasional Past Drug Use History: None Reported - Past Family History Father Family Medical History: No Reported History General Exam - General Exam Comments Initial Comments: Patient currently has no active bleeding Limitations: no limitations General appearance: alert, in no apparent distress Head exam: Present: atraumatic, normocephalic, normal inspection Eye exam: Present: normal appearance, PERRL, EOMI. Absent: scleral icterus, conjunctival injection, periorbital swelling ENT exam: Present: normal exam, mucous membranes moist Neck exam: Present: normal inspection. Absent: tenderness, meningismus, lym phadenopathy Respiratory exam: Present: normal lung sounds bilaterally. Absent: respiratory distress, wheezes, rales, rhonchi, stridor Cardiovascular Exam: Present: regular rate, normal rhythm, normal heart sounds. Absent: systolic murmur, diastolic murmur, rubs, gallop, clicks GI/Abdominal exam: Present: soft, normal bowel sounds. Absent: distended, tenderness, guarding, rebound, rigid Extremities exam: Present: normal inspection, full ROM, normal capillary refill. Absent: tenderness, pedal edema, joint swelling, calf tenderness Back exam: Present: normal inspection Neurological exam: Present: alert, oriented X3, CN II-XII intact Psychiatric exam: Present: normal affect, normal mood Skin exam: Present: warm, dry, intact, normal color. Absent: rash Course Vital Signs 08/28/21 08/28/21 03:57 05:52 Temperature 97.8 F Pulse Rate 70 82 Respiratory 18 18 Rate Blood Pressure 160/98 128/60 O2 Sat by Pulse 98 98 Oximetry - Reevaluation(s) Reevaluation #1: 08/28/21 Medical record is reviewed Patient symptoms are improved here in the emergency department Patient informed results and questions answered Medical Decision Making - Medical Decision Making 75 female to the emergency department for evaluation of nosebleed, nosebleed is resolved on arrival to the ER. Patient can be discharged home - Lab Data Result diagrams: 08/28/21 04:17 08/28/21 04:17 Lab Results 08/28/21 08/28/21 08/28/21 Range/Units 04:15 04:17 04:17 WBC 4.8 (3.8-10.6) k/uL RBC 2.77 L (4.30-5.90) m/uL Hgb 9.0 L (13.0-17.5) gm/dL Hct 26.9 L (39.0-53.0) % MCV 97.1 (80.0-100.0) fL MCH 32.6 (25.0-35.0) pg MCHC 33.6 (31.0-37.0) g/dL RDW 14.5 (11.5-15.5) % Plt Count 301 (150-450) k/uL MPV 7.5 Neutrophils % 74 % Lymphocytes % 12 % Monocytes % 7 % Eosinophils % 4 % Basophils % 1 % Neutrophils # 3.6 (1.3-7.7) k/uL Lymphocytes # 0.6 L (1.0-4.8) k/uL Monocytes # 0.3 (0-1.0) k/uL Eosinophils # 0.2 (0-0.7) k/uL Basophils # 0.0 (0-0.2) k/uL Sodium 136 L (137-145) mmol/L Potassium 3.6 (3.5-5.1) mmol/L Chloride 107 (98-107) mmol/L Carbon Dioxide 23 (22-30) mmol/L Anion Gap 6 mmol/L BUN 29 H (9-20) mg/dL Creatinine 0.98 (0.66-1.25) mg/dL Est GFR (CKD-EPI)AfAm 86 (>60 ml/min/1.73 sqM) Est GFR (CKD-EPI)NonAf 75 (>60 ml/min/1.73 sqM) Glucose 92 (74-99) mg/dL Calcium 8.1 L (8.4-10.2) mg/dL Total Bilirubin 0.6 (0.2-1.3) mg/dL AST 32 (17-59) U/L ALT 28 (4-49) U/L Alkaline Phosphatase 116 (38-126) U/L Total Protein 7.5 (6.3-8.2) g/dL Albumin 3.0 L (3.5-5.0) g/dL Blood Type A Positive Blood Type Recheck A Pos Bld Type Recheck Status No Antibody Screen NEGATIVE Spec Expiration Date 08/31/20212316 Disposition Clinical Impression: Epistaxis Disposition: HOME SELF-CARE Condition: Good Instructions (If sedation given, give patient instructions): Nosebleed (ED) Is patient prescribed a controlled substance at d/c from ED?: No Referrals: Magan Samayoa MD [Primary Care Provider] - 1-2 days
[2021-08-28] MEDS ORDERED: OXYMETAZOLINE 0.05% NASL SPRAY 1 SPRAY BOTTLE NASAL STA (04:29)
[2021-08-28 04:36] LABS: Basophils % (A) 1 %; Eosinophils # (A) 0.2 k/uL (0-0.7); Eosinophils % (A) 4 %; HCT 26.9 % (39.0-53.0); Lymphocytes # (A) 0.6 k/uL (1.0-4.8); Lymphocytes % (A) 12 %; MCH 32.6 pg (25.0-35.0); MCHC 33.6 g/dL (31.0-37.0); MCV 97.1 fL (80.0-100.0); Mean Platelet Volume 7.5; Monocytes # (A) 0.3 k/uL (0-1.0); Monocytes % (A) 7 %; Neutrophils # (A) 3.6 k/uL (1.3-7.7); Neutrophils % (A) 74 %; Platelet Count 301 k/uL (150-450); RBC 2.77 m/uL (4.30-5.90); RDW 14.5 % (11.5-15.5); WBC 4.8 k/uL (3.8-10.6)
[2021-08-28 04:48] LABS: Calcium 8.1 mg/dL (8.4-10.2); Potassium 3.6 mmol/L (3.5-5.1); Total Bilirubin 0.6 mg/dL (0.2-1.3); Total Protein 7.5 g/dL (6.3-8.2)
[2021-08-28 05:53] VITALS: BP 128/60; PULSE 82
== END 2021-08-28 05:53 | disposition home or self-care (01) ==
LOC: EC 03:49
DX: R04.0 Epistaxis (principal); I10 Essential (primary) hypertension; F17.200 Nicotine dependence, unspecified, uncomplicated; Z79.01 Long term (current) use of anticoagulants; Z79.82 Long term (current) use of aspirin; Z86.73 Personal history of transient ischemic attack (TIA), and cerebral infarction without residual deficits
CPT/HCPCS: 36415; 80053; 85025; 86850; 86900; 86901; 99283

== ENCOUNTER 2021-08-31 09:30 | Emergency (ER) | payer MEDICARE ==
[2021-08-31 09:41] VITALS: RESP 18
[2021-08-31] MEDS ORDERED: TRANEXAMIC ACID 2,000 MG in SODIUM CHLORIDE 0.9% 100 ML IRRIGATION ONE (09:53)
[2021-08-31] MEDS ORDERED: OXYMETAZOLINE 0.05% NASL SPRAY 1 SPRAY BOTTLE NASAL STA (09:53)
[2021-08-31] MEDS ORDERED: TRANEXAMIC ACID 1,000 MG/10 ML VIAL IRRIGATION ONE (10:00)
--- NOTE | 2021-08-31 10:11 | ED ---
General Adult HPI - General Chief complaint: ENT Stated complaint: epistaxis Time Seen by Provider: 08/31/21 09:45 Source: patient, EMS, RN notes reviewed, old records reviewed Mode of arrival: EMS Limitations: no limitations - History of Present Illness Initial comments: Patient is a 75-year-old male who presents emergency Department complaining of a nosebleed. It started at 4 AM this morning. He was on BUT has been holding it since last week. He was seen for nosebleed last week, it is stopped SINCE. Did not follow-up with ENT on Monday. States his nosebleed started at 4 AM this morning and did briefly stop, however called EMS when it continued again. States he has coughed up blood a few times. States it is primarily coming from the right side of his nose. Denies any nausea or vomiting. Does endorse mild lightheadedness. Denies any chest pain, shortness of breath. His no other acute complaints at this time. Presents over concern for his nosebleed. He has required blood transfusions in the past for persistent nosebleed. - Related Data Home Medications Medication Instructions Recorded Confirmed Apixaban [Eliquis] 5 mg PO BID 08/31/19 08/31/21 Atorvastatin [Lipitor] 40 mg PO HS 08/31/19 08/31/21 Albuterol Sulfate [Ventolin HFA] 2 puff INHALATION RT-QID PRN 08/31/21 08/31/21 Furosemide [Lasix] 20 mg PO DAILY 08/31/21 08/31/21 Vitamin B(Unknown) 1 tab PO DAILY 08/31/21 08/31/21 amLODIPine [Norvasc] 5 mg PO DAILY 08/31/21 08/31/21 lisinopriL [Zestril] 5 mg PO HS 08/31/21 08/31/21 Previous Rx's Medication Instructions Recorded lisinopriL [Zestril] 5 mg PO DAILY #30 tab 09/01/19 Sodium Chloride [Saline Nasal 1 spray EA NOSTRIL BID #45 ml 08/31/21 [place]] Allergies Allergy/AdvReac Type Severity Reaction Status Date / Time No Known Allergies Allergy Verified 08/31/21 11:30 Review of Systems ROS Statement: Those systems with pertinent positive or pertinent negative responses have been documented in the HPI. Review of Systems: CONST: Denies fever EYES: Denies blurry vision ENT: Endorses right-sided nosebleed C/V: Denies Chest pain RESP: Denies shortness of breath GI: Denies abdominal pain : Denies dysuria SKIN: Denies rash. MSK: Denies joint pain. NEURO: Denies headache ROS Other: All systems not noted in ROS Statement are negative. Past Medical History Past Medical History: CVA/TIA, Hypertension Additional Past Medical History / Comment(s): cva june 2019 effected peripheral vision on right side. History of Any Multi-Drug Resistant Organisms: None Reported Past Surgical History: Orthopedic Surgery Additional Past Surgical History / Comment(s): left shoulder Past Anesthesia/Blood Transfusion Reactions: No Reported Reaction Past Psychological History: No Psychological Hx Reported Smoking Status: Current every day smoker Past Alcohol Use History: None Reported, Occasional Past Drug Use History: None Reported - Past Family History Father Family Medical History: No Reported History General Exam - General Exam Comments Initial Comments: General: Appears in no acute distress. HEAD: Normal with no signs of head trauma. EYES: PERRLA, EOMI, conjunctiva normal, no discharge. ENT: Hearing grossly intact. Right-sided epistaxis currently somewhat controlled. Patient does have dried blood in the posterior oropharynx. RESPIRATORY: Clear breath sounds bilaterally. No wheezes, rales, or rhonchi. C/V: Regular rate and rhythm. S1 and S2 auscultated, no edema, peripheral pulses 2+ and intact throughout ABD: Abd is soft, nontender, nondistended EXT: Normal range of motion, no obvious deformity SKIN: No rashes or lesions observed on exposed skin. NEURO: Alert and oriented 4. Limitations: no limitations Course Vital Signs 08/31/21 09:31 Pulse Rate 64 Respiratory 18 Rate Blood Pressure 141/84 O2 Sat by Pulse 98 Oximetry Medical Decision Making - Medical Decision Making Based on the patient's presentation and physical exam, does appear that he is having a right-sided epistaxis. He has been holding his blood thinner medication for multiple days. However due to him complaining of lightheadedness and the requirement for prior blood transfusions we will obtain coags as well as a CBC. Patient will require some basic packing his right nare as well while he is here in the department. This was done with TXA soaked gauze, as well as Afrin spray. He was in agreement with this plan. Vital signs are stable and within normal limits. Laboratory studies returned revealed a hemoglobin of 7.1, and he has a chronic anemia ranging from 7-9. His acutely lowered, however on reevaluation patient's bleeding has stopped. He is feeling improved. States he would like to go home. I do believe this is reasonable. I would like him to return to the emergency department feels any worsening symptoms. Vital signs remained within normal limits and stable at this time. When we packed the patient's nose with the TXA soaked gauze, did not witness any definitive signs of bleeding. Patient did blow out a large number of blood clots. Has no difficulty swallowing or breathing. The gauze did fall out on its own, and patient has been having no active bleeding for at least an hour. There is no area to cauterize as I do not visualize any active source of bleeding. Patient like to go home at this time. I will provide the patient with a prescription for normal saline nasal spray. I instructed the patient to follow up with their PCP in the next 3 days. I provided contact information for follow up with patient's ENT. I explained that the patient should return to the emergency department if they experience any worsening symptoms. Strict return precautions were discussed with the patient. The patient expressed understanding of these instructions. I answered all questions that the patient had. The patient was discharged home in good condition with their prescriptions and follow up information. - Lab Data Result diagrams: 08/31/21 10:03 Lab Results 08/31/21 08/31/21 Range/Units 10:03 10:03 WBC 4.2 (3.8-10.6) k/uL RBC 2.27 L (4.30-5.90) m/uL Hgb 7.1 L D (13.0-17.5) gm/dL Hct 22.2 L (39.0-53.0) % MCV 98.0 (80.0-100.0) fL MCH 31.5 (25.0-35.0) pg MCHC 32.1 (31.0-37.0) g/dL RDW 14.5 (11.5-15.5) % Plt Count 252 (150-450) k/uL MPV 7.9 PT 10.8 (9.0-12.0) sec INR 1.0 (<1.2) APTT 25.2 (22.0-30.0) sec Disposition Clinical Impression: Epistaxis, Chronic anemia Disposition: HOME SELF-CARE Condition: Good Instructions (If sedation given, give patient instructions): Nosebleed (ED) Prescriptions: Sodium Chloride [Saline Nasal [place]] 1 spray EA NOSTRIL BID #45 ml Is patient prescribed a controlled substance at d/c from ED?: No Referrals: Magan Samayoa MD [Primary Care Provider] - 1-2 days Rodney Cruz MD [STAFF PHYSICIAN] - 1-2 days
[2021-08-31 10:35] LABS: HCT 22.2 % (39.0-53.0); MCH 31.5 pg (25.0-35.0); MCHC 32.1 g/dL (31.0-37.0); Mean Platelet Volume 7.9; Platelet Count 252 k/uL (150-450); RBC 2.27 m/uL (4.30-5.90); RDW 14.5 % (11.5-15.5); WBC 4.2 k/uL (3.8-10.6)
[2021-08-31 10:37] LABS: Partial Thromboplastin Time 25.2 sec (22.0-30.0); Prothrombin Time 10.8 sec (9.0-12.0)
[2021-08-31 11:10] LABS: HGB 7.1 gm/dL (13.0-17.5)
[2021-08-31 12:03] VITALS: BP 136/78; PULSE 57
== END 2021-08-31 12:03 | disposition home or self-care (01) ==
LOC: EC 09:30
DX: R04.0 Epistaxis (principal); D64.9 Anemia, unspecified; Z79.01 Long term (current) use of anticoagulants; Z79.899 Other long term (current) drug therapy; Z86.73 Personal history of transient ischemic attack (TIA), and cerebral infarction without residual deficits; I10 Essential (primary) hypertension; F17.200 Nicotine dependence, unspecified, uncomplicated
CPT/HCPCS: 30901; 36415; 85027; 85610; 85730; 99283

== ENCOUNTER → 2021-09-03 | Outpatient (CLI) | payer MEDICARE ==
--- NOTE | 2021-09-04 10:51 | PE ---
EXAMINATION TYPE: PET CT fusion skull to thigh DATE OF EXAM: 09/03/2021 COMPARISON: Outside chest CT August 19, 2021 HISTORY: Abnormal CT, solitary pulmonary nodule. TECHNIQUE: Following the intravenous administration of 7.94 mCi of F-18 FDG, whole body images are p erformed from the skull base to the midthigh. Images are reviewed on the computer in the coronal, ax ial, and sagittal planes. Reconstructed rotating images are created on independent workstation and r eviewed on the computer. A localization and attenuation correction CT is performed in conjunction w ith the PET scan. Blood glucose level equals 90. SCAN: Initial Scan FINDINGS: SKULL BASE AND NECK: No areas of abnormal hypermetabolic uptake. CHEST, MEDIASTINUM, AND HILAR REGION: [id number] underlying emphysematous change is redemonstra thiago. There is redemonstration of hypermetabolic mass in the posterior superior aspect left lower lobe measuring 6.2 x 6.1 cm with central necrosis, max SUV is 15.86 on axial image 87. No definitive karen tional hypermetabolic nodules or masses. Mild hypermetabolic uptake left hilar lymph node suspected axial image 79, max SUV is 2.88 at this le bee. Prominent but subcentimeter prevascular along with AP window, subcarinal, and paracarinal lymph nodes redemonstrated without abnormal hypermetabolic uptake . ABDOMEN AND PELVIS: Low dense adrenal masses measure 2.4 x 2.3 cm on the left axial image 131 and 2.6 x 2.0 cm on the right axial image 135. No abnormal hypermetabolic uptake identified to suggest metas tatic malignancy. Elongated bladder is present. Normal excretion. No abnormal hypermetabolic uptake. OSSEOUS STRUCTURES: No abnormal hypermetabolic uptake. OTHER CT: Inferior opacification in the bilateral maxillary sinuses left greater than right. Mild to moderate calcified plaque bilateral carotid bulb level. Cardiomegaly with coronary artery calcification along with moderate biatrial dilatation and fairly se ashley three-vessel coronary artery calcification. Dependent small stones and/or gallbladder sludge. Moderate calcified plaque in ectatic abdominal aort a. Patient has little intra-abdominal fat. Mild height loss superior L3 endplate versus prominent Schmorl node. IMPRESSION: Hypermetabolic uptake in the periphery of the central necrotic superior left lower lobe m ass consistent with large neoplasm. Suspect left hilar metastatic adenopathy. Additional prominent an d slightly enlarged thoracic lymph nodes do not show abnormal hypermetabolic uptake to suggest neopla stic involvement. No abnormal hypermetabolic uptake in adrenal masses favoring benign adenomas. No me tastatic disease is evident.
== END | disposition home or self-care (01) ==
LOC: RADPETMAIN 09:31
PROVIDERS: ATTEND Internal Medicine Hematology & Oncology
DX: R91.8 Other nonspecific abnormal finding of lung field (principal)
CPT/HCPCS: 78815; A9552

== ENCOUNTER → 2021-09-30 | Outpatient (CLI) | payer MEDICARE ==
--- NOTE | 2021-09-30 15:32 | MR ---
EXAMINATION TYPE: MR brain wo/w con DATE OF EXAM: 09/30/2021 COMPARISON: None HISTORY: Lung nodule TECHNIQUE: Multiplanar, multisequence images of the brain and brainstem is performed without and with IV contras t, utilizing 7 mL intravenous Gadavist . FINDINGS: Diffusion weighted images demonstrate no evidence of a recent infarct or other diffusion ab normality. There is no extra-axial fluid collection. Confluent and scattered hyperintensities presen t in the periventricular, pericallosal and subcortical white matter on inversion recovery T2-weighted sequences. The ventricular system and cisternal spaces are normal in size and appearance for patient 's age, there is cortical atrophy, some encephalomalacia is present in the left occipital lobe with s ome associated gliosis, some local ex vacuo phenomenon. The brain volume is age appropriate. Midline structures demonstrate normal morphology. The craniocervical junction appears within normal limits. Post contrast images demonstrate no abnormal enhancement. The dural venous sinuses appear pa tent. The visualized sinuses are remarkable for inflammatory change in the right maxillary sinus grea ter than left, ethmoid air cells and the globes are intact. IMPRESSION: Age-related changes of atrophy and chronic small vessel ischemia. Sinus disease.
== END | disposition home or self-care (01) ==
LOC: RADMRIMAIN 08:45
PROVIDERS: ATTEND Internal Medicine Hematology & Oncology
DX: I67.82 Cerebral ischemia (principal); G31.9 Degenerative disease of nervous system, unspecified; J32.9 Chronic sinusitis, unspecified; R91.1 Solitary pulmonary nodule
CPT/HCPCS: 70553; A9585

== ENCOUNTER 2021-10-14 10:46 | Day surgery (SDC) | payer MEDICARE ==
[~2021-10-14 10:46] MED LIST: ALBUTEROL NEB (CONC) 2.5 MG/0.5 ML INHALATION ONE; LACTATED RINGERS 1,000 ML IV SCH; LIDOCAINE 2% (PF) 20 MG/ML 5 ML VIAL INHALATION ONE; LIDOCAINE VISCOUS 300 MG/15 ML CUP MUCOUS MEM ONE; SODIUM CHLORIDE 0.9% 1,000 ML IV SCH
[2021-10-14] MEDS ORDERED: GLYCOPYRROLATE 0.2 MG/ML 2 ML VIAL ONE (12:35)
[2021-10-14] MEDS ORDERED: LIDOCAINE 2% INJ 20 MG/ML (2 ML VIAL) ONE (12:35)
[2021-10-14] MEDS ORDERED: NEOSTIGMINE 1 MG/ML 10 ML VIAL ONE (12:35)
[2021-10-14] MEDS ORDERED: PROPOFOL 10 MG/ML 20 ML VIAL IV ONE (12:35)
[2021-10-14] MEDS ORDERED: SUCCINYLCHOLINE CHLORIDE 100 MG/5 ML SYR IV ONE (12:35)
[2021-10-14] MEDS ORDERED: fentaNYL (PF) 50 MCG/ML 2 ML AMP ONE (12:35)
[2021-10-14] MEDS ORDERED: ROCURONIUM 10 MG/ML (5 ML VIAL) IV ONE (12:35)
--- NOTE | 2021-10-14 13:53 | P.PCN ---
Date of Procedure: 10/14/21 Operative Findings: Operative Findings: 1 left lower lobe mass 2 Medistinal lymphadenopathy Postoperative Diagnosis: 1 left lower lobe mass 2 mediastinal lymphadenopathy 3 narrowing of the lateral and the posterior segments of the left lower lobe Procedure(s) Performed: 1 flexible bronchoscopy, airway inspection 2 navigation bronchoscopy, transbronchial biopsy and transbronchial brushings of a of a left lower lobe mass, bronchioloalveolar lavage of the left lower lobe 2 endoscopic ultrasound (EBUS) 3 transbronchial needle aspirate of station station 7, station 4L, 10L lymph nodes Surgeon: Dorina Marie Assembly Leader #1: Zoraida Jamil Estimated Blood Loss (ml): 50 cc Pathology: TBBX and transbronchial brushing of the left lower lobe mass in addition to a bronchioloalveolar lavage of the left lower lobe, transbronchial needle aspirate of station 7, station 4L, 10L lymph nodes Condition: stable Disposition: same day Operative Findings: The patient had a preoperative computed tomography scan of the chest using the [employer] protocol. The CAT scan images were reviewed. The left lower lobe opacity was identified it was mapped appropriately. The CAT scan images are uploaded into a USB and then into the [employer] tower. After obtaining the consent the patient was taken to the OR suite he was intubated and put on mechanical ventilation by anesthesia then the scope was advanced to the ET tube until the Trachea was seen and it was normal and then the dominick appears normal then the scope advanced to the left main and PRANAV LB1- LB3 were seen and no endobronchial lesions were seen then the scope advanced to the lingula and the LB4 and LB5 were seen and no endobronchial lesions were seen the scope retracted and advanced to the left lower lobes LB6 to LB12 were seen one by one and no endobronchial lesions, nevertheless, the lateral and the posterior segment of the left lower lobe were quite anatomically narrowed and the dominick these segments was swollen, irregular and anatomically distorted. Then the scope was retracted back to the dominick and advanced to the Right main and RUL RB1 and RB2 and RB3 were seen one by one and no endobronchial lesions were seen the scope, however, the segment of the posterior right upper lobe bronchus were atelectatic and narrowed and extrinsically compressed. The bronchoscope was then retracted and advanced to the BI and RML RB4 and RB5 were seen and no endobronchial lesions were seen then it was retracted and advanced to the RLL RB6 to RB12 were seen one by one and no endobronchial lesions. Navigation bronchoscopy was performed. The main dominick and the secondary dominick on the left were used as the reference points and appropriate calibration was done. Following that, using a navigation guidance , the bronchoscope was advanced to the left lower lobe posterior segment and various transbronchial biopsies of the right upper lobe opacity was done without any complications. There was ongoing endobronchial bleeding from the biopsy site with this segment continued was blood throughout the procedure. On multiple occasions, infused cold saline and ultimately was able to stop the bleeding from the left lower lobe posterior segment where the biopsy was performed. Estimated blood loss was around 50 mL. Several pieces of blood cultures were also aspirated from the left lower lobe. After control of the bleed, transbronchial brushing of the left lower lobe mass was done. . Aa bronchioloalveolar lavage (BAL) of theleft lower lobe posterior segment was done.. A total of 80 mL of fluid was infused and 20 mL was suctioned back and this will be sent for cytology and microbial cultures. Then EBUS was used and the lymph nodes were examined. Direct measurement of the mediastinal lymph nodes revealed station 4L lymph node measuring 12x12 mm in size, station 10 L lymph node measuring 22x18 mm in size, station and a subcarinal lymph node station 7 measuring 19x11 mm in size. On the EBUS guidance, transbronchial needle aspirate of the subcarinal lymph node station 7 was done with a total of 2 passes, station 4L lymph node was done with a total of 2 passes and station 10 L superior was done with a total of 2 passes. No major bleeding and the scope was removed and taken out and the procedure was completed. The bronchoscope was removed, the patient will be extubated and then transferred to recovery. A follow-up chest x-ray will be done in recovery.
[2021-10-14 14:03] VITALS: TEMP 98
--- NOTE | 2021-10-14 14:20 | XR ---
EXAMINATION TYPE: XR chest 1V DATE OF EXAM: 10/14/2021 COMPARISON: 10/14/2021 HISTORY: Post bronchoscopy TECHNIQUE: Single frontal view of the chest is obtained. FINDINGS: Large mass left upper lobe. Underlying COPD suggested with mild cardiomegaly but no pleura l effusion or pneumothorax. Diffuse osteopenia. Postsurgical change left shoulder. Atherosclerotic ch tammy aorta. IMPRESSION: 1. Large left upper lobe mass. 2. COPD.
[2021-10-14 14:50] VITALS: RESP 20
[2021-10-14 15:15] VITALS: BP 121/60; PULSE 52
--- NOTE | 2021-10-14 20:17 | CT ---
EXAMINATION TYPE: CT Chest chris Sauceda Protocol DATE OF EXAM: 10/14/2021 COMPARISON: CT dated 08/19/2021 and PET scan dated 09/03/2021 HISTORY: Navigational bronchoscopy. CT DLP: 621 mGycm Automated exposure control for dose reduction was used. TECHNIQUE: Multiplanar nonenhanced CT scan of the chest for preoperative planning. FINDINGS: Known large left lower lobe superior segment mass measuring 7.5 x 9.9 cm, kindly refer to the detaile d description of the PET scan dated 09/03/2021. The left lower lobe demonstrates subtle infiltration, g roundglass opacities and micronodularity, possibly metastatic. Peripheral pulmonary reticulations wit h background of mild COPD. Septal thickening seen in the left upper lobe, lymphangitis carcinomatosis cannot be excluded. Patent trachea and main bronchi. No sizable pleural or pericardial effusion. Mar kedly cardiomegaly with coronary and arterial atherosclerotic calcifications. Suspected left hilar lymphadenopathy with multiple variable sized mediastinal lymphadenopathy, nonspe cific. Suspected cholelithiasis. Fecal loading of the visualized portion of the colon suggestive of s evere constipation. Left adrenal lesion demonstrating a density of 10 Hounsfield units likely represe nting an adrenal adenoma and measuring up to 2.7 cm. Tiny left renal calculi versus arterial calcific ation. Left upper pole renal cyst, suboptimally assessed. Stable anterior wedging and partial collaps e of T5 vertebral body. IMPRESSION: CT for preoperative planning demonstrating large left lower lung lobe and other findings as described above.
[2021-10-15 05:26] LABS: Appearance,BF Bloody
== END 2021-10-14 15:15 | disposition home or self-care (01) ==
LOC: ORWHC2ENDO 10:46
PROVIDERS: ATTEND Internal Medicine Critical Care Medicine
DX: R91.8 Other nonspecific abnormal finding of lung field (principal); R59.0 Localized enlarged lymph nodes
CPT/HCPCS: 87206; 87798 ×3; 87496; 87498; 87529; 88104; 88305; 89050; 88342; 87252; 87502; 87634; 87070; 87205; 87116; 87102; 71045; 71250; 31628; 31623; 31624; 31627; 31653; J2710; J3010; J0330; J2704; J2001; 31625; 31652

== ENCOUNTER 2021-10-29 13:18 | Emergency (ER) | payer MEDICARE ==
[2021-10-29 13:26] VITALS: BP 151/94; PULSE 62; RESP 18; TEMP 97.8
[2021-10-29 15:34] LABS: Calcium 7.9 mg/dL (8.4-10.2); Potassium 3.3 mmol/L (3.5-5.1); Total Protein 7.2 g/dL (6.3-8.2)
[2021-10-29 15:37] LABS: Total Bilirubin 0.4 mg/dL (0.2-1.3)
[2021-10-29 15:39] LABS: Partial Thromboplastin Time 28.5 sec (22.0-30.0); Prothrombin Time 10.9 sec (9.0-12.0)
[2021-10-29 15:52] LABS: Basophils % (A) 1 %; Eosinophils # (A) 0.1 k/uL (0-0.7); Eosinophils % (A) 2 %; HCT 31.5 % (39.0-53.0); Lymphocytes # (A) 0.5 k/uL (1.0-4.8); Lymphocytes % (A) 10 %; MCH 31.3 pg (25.0-35.0); MCHC 32.1 g/dL (31.0-37.0); MCV 97.6 fL (80.0-100.0); Mean Platelet Volume 7.7; Monocytes # (A) 0.4 k/uL (0-1.0); Monocytes % (A) 8 %; Neutrophils # (A) 4.2 k/uL (1.3-7.7); Neutrophils % (A) 78 %; Platelet Count 301 k/uL (150-450); RBC 3.23 m/uL (4.30-5.90); RDW 15.6 % (11.5-15.5); WBC 5.4 k/uL (3.8-10.6)
[2021-10-29 16:05] LABS: HGB 10.1 gm/dL (13.0-17.5)
[2021-10-29] MEDS ORDERED: POTASSIUM CHLORIDE ER 20 MEQ TAB.ER PO STA (16:43)
--- NOTE | 2021-10-29 17:01 | ED ---
General Adult HPI - General Chief complaint: Extremity Problem,Nontraumatic Stated complaint: Swollen Feet Time Seen by Provider: 10/29/21 16:38 Source: patient, RN notes reviewed, old records reviewed Mode of arrival: ambulatory Limitations: no limitations - History of Present Illness Initial comments: 75-year-old male presenting for evaluation of bilateral lower extremity swelling. He states this has been going on for greater than 1 month maybe rios mary. He denies associated chest pain or dyspnea. He states he was seen by his primary care physician who recommended to present to the emergency department for ultrasound of the lower extremities. He denies fever. Denies vomiting. He is a current smoker. - Related Data Home Medications Medication Instructions Recorded Confirmed Atorvastatin [Lipitor] 40 mg PO DAILY 08/31/19 10/29/21 Albuterol Sulfate [Ventolin HFA] 2 puff INHALATION RT-QID PRN 08/31/21 10/29/21 Vitamin B(Unknown) 1 tab PO DAILY 08/31/21 10/29/21 amLODIPine [Norvasc] 5 mg PO DAILY 08/31/21 10/29/21 lisinopriL [Zestril] 5 mg PO BID 08/31/21 10/29/21 Furosemide [Lasix] 40 mg PO DAILY 10/29/21 10/29/21 Potassium Chloride [Potassium 10 meq PO DAILY 10/29/21 10/29/21 Chloride ER] Allergies Allergy/AdvReac Type Severity Reaction Status Date / Time No Known Allergies Allergy Verified 10/29/21 17:08 Review of Systems ROS Statement: Those systems with pertinent positive or pertinent negative responses have been documented in the HPI. ROS Other: All systems not noted in ROS Statement are negative. 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 lung CA History of Any Multi-Drug Resistant Organisms: None Reported Past Surgical History: Orthopedic Surgery Additional Past Surgical History / Comment(s): left shoulder Past Anesthesia/Blood Transfusion Reactions: No Reported Reaction Past Psychological History: No Psychological Hx Reported Smoking Status: Current every day smoker Past Alcohol Use History: None Reported, Occasional Past Drug Use History: None Reported - Past Family History Father Family Medical History: AICD/Pacemaker Mother Family Medical History: Cancer General Exam Limitations: no limitations General appearance: alert, in no apparent distress Head exam: Present: atraumatic, normocephalic Eye exam: Present: normal appearance, PERRL ENT exam: Present: normal exam Neck exam: Present: normal inspection. Absent: tenderness, meningismus Respiratory exam: Present: decreased breath sounds. Absent: respiratory distress Cardiovascular Exam: Present: regular rate, irregular rhythm GI/Abdominal exam: Present: soft. Absent: distended, tenderness, guarding Extremities exam: Present: pedal edema Neurological exam: Present: alert, oriented X3, CN II-XII intact. Absent: motor sensory deficit Psychiatric exam: Present: normal affect, normal mood Skin exam: Present: warm, dry, intact. Absent: cyanosis, diaphoretic Course Vital Signs 10/29/21 13:23 Temperature 97.8 F Pulse Rate 62 Respiratory 18 Rate Blood Pressure 151/94 O2 Sat by Pulse 99 Oximetry - Reevaluation(s) Reevaluation #1: 10/29/21 18:04 Patient standing in the doorway of his room dressed, ready to leave. Does not want any further testing or evaluation. EKG Findings - EKG Comments: EKG Findings:: Atrial fibrillation with slow ventricular response, rate of [address] segment elevation T-wave abnormality in the lateral precordial leads. QRS duration 83, QTC 447. Medical Decision Making - Medical Decision Making I did perform laboratory testing, hemoglobin is improved from baseline. He does have an elevated BNP. He has a mild hypokalemia which is replaced. I performed the ultrasounds of his legs which are negative for DVT. The patient should follow-up with his primary care physician. He should inform the primary care physician of the atrial fibrillation which is not currently listed on his medical problems. He should follow-up with cardiology. This is possibly related to congestive heart failure. The patient would not stay for further testing or evaluation of his elevated BNP and EKG showing atrial fibrillation. - Lab Data Result diagrams: 10/29/21 14:59 10/29/21 14:59 Lab Results 10/29/21 10/29/21 10/29/21 Range/Units 14:59 14:59 14:59 WBC 5.4 (3.8-10.6) k/uL RBC 3.23 L (4.30-5.90) m/uL Hgb 10.1 L D (13.0-17.5) gm/dL Hct 31.5 L (39.0-53.0) % MCV 97.6 (80.0-100.0) fL MCH 31.3 (25.0-35.0) pg MCHC 32.1 (31.0-37.0) g/dL RDW 15.6 H (11.5-15.5) % Plt Count 301 (150-450) k/uL MPV 7.7 Neutrophils % 78 % Lymphocytes % 10 % Monocytes % 8 % Eosinophils % 2 % Basophils % 1 % Neutrophils # 4.2 (1.3-7.7) k/uL Lymphocytes # 0.5 L (1.0-4.8) k/uL Monocytes # 0.4 (0-1.0) k/uL Eosinophils # 0.1 (0-0.7) k/uL Basophils # 0.0 (0-0.2) k/uL PT 10.9 (9.0-12.0) sec INR 1.0 (<1.2) APTT 28.5 (22.0-30.0) sec Sodium 134 L (137-145) mmol/L Potassium 3.3 L (3.5-5.1) mmol/L Chloride 96 L (98-107) mmol/L Carbon Dioxide 33 H (22-30) mmol/L Anion Gap 5 mmol/L BUN 20 (9-20) mg/dL Creatinine 1.11 (0.66-1.25) mg/dL Est GFR (CKD-EPI)AfAm 74 (>60 ml/min/1.73 sqM) Est GFR (CKD-EPI)NonAf 64 (>60 ml/min/1.73 sqM) Glucose 119 H (74-99) mg/dL Calcium 7.9 L (8.4-10.2) mg/dL Magnesium 2.0 (1.6-2.3) mg/dL Total Bilirubin 0.4 (0.2-1.3) mg/dL AST 45 (17-59) U/L ALT 55 H (4-49) U/L Alkaline Phosphatase 128 H (38-126) U/L NT-Pro-B Natriuret Pep pg/mL Total Protein 7.2 (6.3-8.2) g/dL Albumin 3.0 L (3.5-5.0) g/dL 10/29/21 Range/Units 14:59 WBC (3.8-10.6) k/uL RBC (4.30-5.90) m/uL Hgb (13.0-17.5) gm/dL Hct (39.0-53.0) % MCV (80.0-100.0) fL MCH (25.0-35.0) pg MCHC (31.0-37.0) g/dL RDW (11.5-15.5) % Plt Count (150-450) k/uL MPV Neutrophils % % Lymphocytes % % Monocytes % % Eosinophils % % Basophils % % Neutrophils # (1.3-7.7) k/uL Lymphocytes # (1.0-4.8) k/uL Monocytes # (0-1.0) k/uL Eosinophils # (0-0.7) k/uL Basophils # (0-0.2) k/uL PT (9.0-12.0) sec INR (<1.2) APTT (22.0-30.0) sec Sodium (137-145) mmol/L Potassium (3.5-5.1) mmol/L Chloride (98-107) mmol/L Carbon Dioxide (22-30) mmol/L Anion Gap mmol/L BUN (9-20) mg/dL Creatinine (0.66-1.25) mg/dL Est GFR (CKD-EPI)AfAm (>60 ml/min/1.73 sqM) Est GFR (CKD-EPI)NonAf (>60 ml/min/1.73 sqM) Glucose (74-99) mg/dL Calcium (8.4-10.2) mg/dL Magnesium (1.6-2.3) mg/dL Total Bilirubin (0.2-1.3) mg/dL AST (17-59) U/L ALT (4-49) U/L Alkaline Phosphatase (38-126) U/L NT-Pro-B Natriuret Pep 4410 pg/mL Total Protein (6.3-8.2) g/dL Albumin (3.5-5.0) g/dL Disposition Clinical Impression: Lower extremity edema Disposition: HOME SELF-CARE Condition: Fair Instructions (If sedation given, give patient instructions): Leg Edema (ED) Additional Instructions: These follow-up with her primary care physician. Regarding your persistent lower extremity edema. He may require outpatient testing for congestive heart failure. Is patient prescribed a controlled substance at d/c from ED?: No Referrals: Magan Samayoa MD [Primary Care Provider] - 1-2 days Ty Queen MD [STAFF PHYSICIAN] - 1-2 days Time of Disposition: 18:04
--- NOTE | 2021-10-29 18:02 | US ---
EXAMINATION TYPE: US venous doppler duplex LE BI DATE OF EXAM: 10/29/2021 5:55 PM COMPARISON: NONE CLINICAL HISTORY: swelling. feet swellling SIDE PERFORMED: Bilateral TECHNIQUE: The lower extremity deep venous system is examined utilizing real time linear array sonog justyna with graded compression, doppler sonography and color-flow sonography. VESSELS IMAGED: Common Femoral Vein Deep Femoral Vein Greater Saphenous Vein * Femoral Vein Popliteal Vein Small Saphenous Vein * Proximal Calf Veins (* superficial vessels) Right Leg: Negative for DVT Left Leg: Negative for DVT IMPRESSION: No sign of deep vein thrombosis in both legs.
== END 2021-10-29 18:07 | disposition home or self-care (01) ==
LOC: EC 13:18
DX: R60.0 Localized edema (principal); I10 Essential (primary) hypertension; Z86.73 Personal history of transient ischemic attack (TIA), and cerebral infarction without residual deficits; F17.200 Nicotine dependence, unspecified, uncomplicated
CPT/HCPCS: 36415; 80053; 83735; 83880; 85025; 85610; 85730; 93970